=== PATIENT | female | born 1975 | race Caucasian/White ===

== ENCOUNTER 2020-06-04 09:46 | Outpatient (CLI) | payer OTHER, SELFPAY ==
--- NOTE | 2020-06-04 10:13 | FL_ITS ---
WS: [id number] ESOPHAGRAM TECHNIQUE: Double contrast examination was performed with thin and thick barium. Upright and ERVIN imag es were obtained. CLINICAL INFORMATION: DYSPHAGIA COMPARISON: None. FINDINGS: Swallowing: No evidence of aspiration or penetration. Esophagus: Mild esophageal dysmotility with slightly delayed emptying. Eccentric vascular indentation on the upper esophagus. Slightly delayed transit of barium tablet in this location. No evidence of h igh-grade stricture or obstructing mass. Gastroesophageal reflux: Mild reflux in the upright and supine position. No significant hiatal hernia . Fluoroscopy time: 3.3 minutes. FL/FL barium swallow [id number] IMPRESSION: 1. No evidence of high-grade stricture or obstructing mass. 2. Mild esophageal dysmotility with slightly delayed emptying. 3. Mild reflux in the upright and supine position. No significant hiatal herni a. 4. Smooth eccentric vascular indentation on the upper esophagus. Slightly afshin yed transit of barium tablet in this location. Recommend further evaluation wit h contrast-enhanced chest CT to evaluate for aortic arch anomalies. Aortic arch appears left-sided. Indentation may be from an aberrant right subclavian arter y.
== END 2020-06-04 09:47 | disposition home or self-care (01) ==
PROVIDERS: PCP Family Medicine; Visit Provider Specialist
DX: R13.10 Dysphagia, unspecified (principal)
CPT/HCPCS: 74220

== ENCOUNTER 2020-07-04 08:24 | Outpatient (CLI) | payer OTHER, SELFPAY ==
--- NOTE | 2020-07-04 08:30 | CT_ITS ---
WS: [id number] CT CHEST TECHNIQUE: Contrast enhanced CT of the chest with coronal and sagittal reformatted images. CLINICAL INFORMATION: DYSPHAGIA COMPARISON: None. DLP: 563.[address] scans at [facility] use at least one of these dose optimization techniques: automat ed exposure control; mA and/or kV adjustment per patient size (includes targeted exams where dose is matched to clinical indication); or iterative reconstruction. FINDINGS:Aberrant right subclavian artery as suspected on the barium swallow accounting for the esoph ageal indentation. This courses posterior to the thoracic esophagus. Otherwise normal aortic arch. Lungs are well aerated. No acute pulmonary infiltrates. No focal consolidation or pleural fluid. Thyr oid gland is normal. No mediastinal or hilar lymphadenopathy. No axillary lymphadenopathy. Normal caliber thoracic aorta. Adrenal glands are normal. CT/CT chest w con* [id number] IMPRESSION: 1. Retroesophageal subclavian artery with indentation on the esophagus as desc ribed on the barium swallow. 2. Remainder of the aortic arch is unremarkable. 3. Lungs are well aerated. No acute pulmonary infiltrates. 4. No mediastinal or hilar lymphadenopathy.
--- NOTE | 2020-07-04 08:30 | CT_ITS ---
WS: [id number] CT NECK TECHNIQUE: Contrast-enhanced CT of the neck with coronal and sagittal reformatted images. CLINICAL INFORMATION: DYSPHAGIA COMPARISON: None. DLP: 2429.[address] scans at [facility] use at least one of these dose optimization techniques: automat ed exposure control; mA and/or kV adjustment per patient size (includes targeted exams where dose is matched to clinical indication); or iterative reconstruction. FINDINGS: Parotid glands are normal. Normal submandibular glands. No cervical lymphadenopathy. No evidence of s upraglottic or glottic mass. Normal parapharyngeal fat. Normal posterior nasopharynx. Tongue base guero ears normal. Normal thyroid gland. Lung apices are well aerated. Aberrant right subclavian artery will be discussed on the chest CT. Small retention cysts in the maxi llary sinuses. Mastoid air cells are well aerated. CT/CT neck w con* [id number] IMPRESSION: 1. Salivary glands are normal. 2. No cervical lymphadenopathy 3. No evidence of supraglottic or glottic mass. Normal subglottic airway. 4. Aberrant right subclavian artery.
[2020-07-04] MEDS: iohexol 300 mg/mL 100 mL Btl IV ×2 (09:07→09:08)
== END 2020-07-04 08:25 | disposition home or self-care (01) ==
LOC: RADWPI 08:27
PROVIDERS: PCP Family Medicine; Visit Provider Specialist
DX: R13.10 Dysphagia, unspecified (principal); Q27.8 Other specified congenital malformations of peripheral vascular system
CPT/HCPCS: 70491; 71260; Q9967

== ENCOUNTER 2021-06-06 10:27 | Outpatient (CLI) | payer OTHER, SELFPAY ==
--- NOTE | 2021-06-06 10:29 | MM_ITS ---
WS: [id number] Exam: [id number] Date/Time of Exam: 06/06/2021 10:35 AM Reason For Exam: SCREENING VIEWS: MLO and CC views both breasts. Comparison made with prior exam of 12/19/2013 and 04/14/2018. Findings: There was no sign of mass, architectural distortion or suspicious calcification in either breast. Sc attered fibroglandular densities MM/[place] [id number] Impression: BI-RADS: 2-Benign FOLLOW-UP: 1 Year Follow-up This mammogram was also analyzed by the Computer Aided Detection System R2 Imag e Assistant Store Manager.
== END 2021-06-06 10:28 | disposition home or self-care (01) ==
PROVIDERS: PCP Family Medicine; Visit Provider Family Medicine
DX: Z12.31 Encounter for screening mammogram for malignant neoplasm of breast (principal)
CPT/HCPCS: 77067

== ENCOUNTER 2022-06-10 22:09 | Observation (INO) | payer OTHER, SELFPAY ==
[2022-06-10 22:17] VITALS: BMI 32.8
[2022-06-10 22:20] VITALS: BP 137/88; PULSE 81; RESP 17; TEMP 36.7; O2SAT 97
[2022-06-10 23:12] LABS: Add Urine Microscopic? NO; Charge for UA Resulting for Rev
--- NOTE | 2022-06-10 23:16 | CTR_ITS ---
PROCEDURE INFORMATION: Exam: CT Abdomen And Pelvis With Contrast Exam date and time: 06/10/2022 11:50 PM Age: 46 years old Clinical indication: Abdominal pain; Localized; Prior surgery; Surgery type: Csection; Patient HX: C/O lower abd pain with nausea. TECHNIQUE: Imaging protocol: Computed tomography of the abdomen and pelvis with contrast. Radiation optimization: All CT scans at this facility use at least one of these dose optimization techniques: automated exposure control; mA and/or kV adjustment per patient size (includes targeted exams where dose is matched to clinical indication); or iterative reconstruction. Contrast material: OMNI 350; Contrast volume: 100 ml; Contrast route: INTRAVENOUS (IV); COMPARISON: CT chest w con* [id number] 07/04/2020 9:01 AM RADIATION DOSE METRICS: Total DLP (mGy-cm): 872.43 FINDINGS: Lungs: There is a noncalcified pulmonary nodule in the left lower lobe visible on series 4, image 6 measuring 6 mm. Lung bases are clear. Liver: The liver is normal. Gallbladder and bile ducts: The gallbladder is normal. There is no biliary dilation. Pancreas: The pancreas is unremarkable. Spleen: The spleen is unremarkable. Adrenal glands: The adrenal glands are unremarkable. Kidneys and ureters: The kidneys are unremarkable. No hydronephrosis or stones. No ureteral dilation. Stomach and bowel: The stomach is unremarkable. The small bowel is nondilated. The colon is unremarkable. Appendix: The appendix is enlarged measuring up to 9 mm diameter. There is periappendiceal edema. No appendicoliths. Intraperitoneal space: There is no free air or significant intraperitoneal free fluid. There is no intraperitoneal free air. Vasculature: The aorta is unremarkable. There is no aneurysm. The portal, splenic and superior mesenteric veins are patent. Lymph nodes: There is no lymphadenopathy in the retroperitoneum, mesentery, pelvis or inguinal regions. Urinary bladder: Unremarkable as visualized. Reproductive: The uterus is unremarkable. There is no adnexal mass or large cyst. Bones/joints: Bones are unremarkable. Soft tissues: The abdominal wall is intact. The abdominal wall is intact. CT/CT abdomen pelvis w con* [id number] IMPRESSION: 1. Acute appendicitis. No sign of perforation. 2. 6 mm left lower lobe pulmonary nodule.For patients at low risk (minimal or absent history of smoking and of other known risk factors), recommend CT Chest at 6-12 months, then consider CT Chest at 18-24 months. For patients at high risk (history of smoking or of other known risk factors), recommend CT Chest at 6-12 months, then CT Chest at 18-24 months. (Reference: Darell) REFERENCES: Darell Hoover et al. Guidelines for Management of Incidental Pulmonary Nodules Detected on CT Images: From the Fleischner Society 2017. Radiology. 2017;284(1):228-243.
[2022-06-10 23:20] LABS: Bilirubin Urine Neg (Negative); Blood Urine Neg (Negative); Glucose Urine UA Norm (Normal); Ketones Urine Negative (Negative); Leukocyte Esterase Urine Negative (Negative); Nitrate Urine Negative (Negative); Protein Urine Neg (Negative); Urine Appearance Clear (CLEAR); Urine Color Yellow (Yellow); Urobilinogen Urine Norm (Negative); pH Urine 5 (5-7)
[2022-06-10 23:30] LABS: HCG, Serum Qual Negative (Negative)
[2022-06-10 23:34] LABS: Basophils # 0.1 10^3/uL (0.0-0.1); Basophils % 0.5 %; Eosinophils # 0.1 10^3/uL (0.0-0.8); Eosinophils % 1.1 %; Hematocrit 42.3 % (37.0-47.0); Hemoglobin 14.4 g/dL (11.5-15.3); Lymphocytes # 5.8 10^3/uL (0.8-4.8); Lymphocytes % 43.9 %; Mean Corpuscular Hemoglobin 30.3 pg (28.0-34.0); Mean Corpuscular Volume 89.1 fl (81-99); Mean Platelet Volume 10.4 fL (7.4-10.4); Monocytes # 0.6 10^3/uL (0.2-0.9); Monocytes % 4.7 %; Neutrophils # 6.55 10^3/uL (1.8-7.7); Neutrophils % 49.3 %; Nucleated Red Blood Cells % 0 %; Platelet Count 246 10^3/cmm (130-400); Red Blood Count 4.75 10^6/uL (4.1-5.3); Red Cell Distribution Width 12.1 % (12.1-15.1); White Blood Count 13.3 10^3/uL (4.0-10.0)
[2022-06-10 23:39] LABS: Alanine Aminotransferase 24 U/L (0-33); Albumin Level 4.3 g/dL (3.5-5.2); Alkaline Phosphatase 96 U/L (35-105); Anion Gap 17.2 (5-19); Aspartate Amino Transferase 24 U/L (0-32); Blood Urea Nitrogen 18 mg/dL (6-20); Calcium 9.3 mg/dL (8.5-10.5); Carbon Dioxide 23 mmol/L (22-29); Chloride 99 mmol/L (98-107); Globulin 3.5 g/dL (1.3-4.6); Glomerular Filtration Rate 89.3 mL/min (90-130); Glucose 150 mg/dL (65-115); Lipase 35 U/L (13-60); Osmolality Calculated 287 mOsm/kg (285-295); Potassium 3.2 mmol/L (3.5-5.1); Sodium 136 mmol/L (136-145); Total Bilirubin 0.3 mg/dL (0.15-1.2); Total Protein 7.8 g/dL (6.6-8.7)
--- NOTE | 2022-06-10 23:39 | W.ED.ABDPA2 ---
HPI - Abdominal Pain General: Chief Complaint: Abdominal Pain Stated Complaint: ABDOMEN PAIN Time Seen by Provider: 06/10/22 22:11 Source: patient Mode of arrival: ambulatory Limitations: no limitations History of Present Illness: 46-year-old female states that she had a sudden onset of very sharp lower abdominal pain about 30 minutes to arrival states its her whole lower abdomen but more on the left side. States the pain is a 9 out of 10 she been having nausea and vomiting she denies any worsening proving factors denies any fevers. Associated Symptoms: Reports nausea and vomiting; Denies chills, dysuria and fever(s) Review of Systems Const: Denies: fever(s), chills, body aches or change in appetite Eyes: Denies: blurry vision or eye discomfort ENMT: Denies: throat pain or dental pain Card: Denies: chest pain Resp: Denies: dyspnea GI: Reports: abdominal pain, nausea and vomiting : Denies: dysuria Musc: Denies: neck pain or back pain Skin/Breast: Denies: rash Neuro: Denies: headache(s) Psych: Denies: depression Geovani/Lymph: Denies: easy bruising All/Imm: Denies: urticaria PFSH ED PFSH: Medical History (Updated 06/11/22 @ 00:38 by Sandy Doss MD) No pertinent past medical history Social History (Updated 06/10/22 @ 23:40 by Sandy Doss MD) Substance/Drug Use: never Physical Exam Const: COMMON NORMALS: no acute distress, patient oriented x3 and healthy appearing HENMT: COMMON NORMALS: normocephalic and atraumatic HEAD & SCALP: normocephalic and atraumatic Eye: COMMON NORMALS: Equal, round and reactive pupils present and EOMs intact bilaterally PUPIL: Yes Equal, round and reactive pupils present Neck/C-Spine: COMMON NORMALS: full ROM and supple Chest: COMMONS NORMALS: normal inspection of the chest and normal palpation of entire chest wall Resp: COMMON NORMALS: normal respiratory effort, No retractions, No use of accessory muscles and clear to auscultation bilaterally AUSCULTATION: clear to auscultation bilaterally Cardio: COMMON NORMALS: regular rate, regular rhythm and No murmurs present (Cardio) RATE: regular rate RHYTHM: regular rhythm GI: COMMON NORMALS: Normal to inspection, nondistended, normoactive bowel sounds present, Soft to palpation and no masses PALPATION: Yes Soft to palpation OTHER: diffuse tenderness Extremity: COMMON NORMALS: normal to inspection and full ROM Neuro: COMMON NORMALS: patient oriented x3, moves all extremities and no focal motor deficits Psych: COMMON NORMALS: mental status grossly normal, Normal thought process present and cooperative THOUGHT PROCESS: Normal thought process present Skin: COMMON NORMALS: no rashes or lesions noted and no wounds GENERAL SKIN EXAM: no rashes or lesions noted Course Vital Signs: Vital signs: Vital Signs Temperature 98.1 F 06/10/22 22:20 Pulse Rate 81 06/10/22 22:20 Respiratory Rate 18 06/10/22 23:42 Blood Pressure 137/88 06/10/22 22:20 Pulse Oximetry 97 06/10/22 22:20 Oxygen Delivery Me thod Nasal Cannula 06/10/22 22:20 MDM - Abdominal Pain Medical Decision Making Patient presents with abdominal pain CT scan shows appendicitis I did speak to the surgeon dr. johnson will admit on IV antibiotics at this time. Lab Data 06/10/22 23:07 06/10/22 23:07 Labs/Radiology: Radiology Impressions Abdomen/Pelvis CT 06/10/22 23:16 IMPRESSION: 1. Acute appendicitis. No sign of perforation. 2. 6 mm left lower lobe pulmonary nodule.For patients at low risk (minimal or absent history of smoking and of other known risk factors), recommend CT Chest at 6-12 months, then consider CT Chest at 18-24 months. For patients at high risk (history of smoking or of other known risk factors), recommend CT Chest at 6-12 months, then CT Chest at 18-24 months. (Reference: Darell) REFERENCES: Darell Hoover et al. Guidelines for Management of Incidental Pulmonary Nodules Detected on CT Images: From the Fleischner Society 2017. Radiology. 2017;284(1):228-243. ADDENDUM: 06/11/22 0024 THIS REPORT CONTAINS FINDINGS THAT MAY BE CRITICAL TO PATIENT CARE. The findings were verbally communicated via telephone conference with SANDY DOSS at 12:23 AM PHARMACIST AIDE on 06/11/2022. The findings were acknowledged and understood. Laboratory Results WBC 13.3 10^3/uL (4.0-10.0) H 06/10/22 23:07 RBC 4.75 10^6/uL (4.1-5.3) 06/10/22 23:07 Hgb 14.4 g/dL (11.5-15.3) 06/10/22 23:07 Hct 42.3 % (37.0-47.0) 06/10/22 23:07 MCV 89.1 fl (81-99) 06/10/22 23:07 MCH 30.3 pg (28.0-34.0) 06/10/22 23:07 MCHC 34.0 g/dL (30.0-36.0) 06/10/22 23:07 RDW 12.1 % (12.1-15.1) 06/10/22 23:07 Plt Count 246 10^3/cmm (130-400) 06/10/22 23:07 MPV 10.4 fL (7.4-10.4) 06/10/22 23:07 Neut % (Auto) 49.3 % 06/10/22 23:07 Lymph % (Auto) 43.9 % 06/10/22 23:07 [place] % (Auto) 4.7 % 06/10/22 23:07 Eos % (Auto) 1.1 % 06/10/22 23:07 Baso % (Auto) 0.5 % 06/10/22 23:07 Neut # (Auto) 6.55 10^3/uL (1.8-7.7) 06/10/22 23:07 Lymph # (Auto) 5.8 10^3/uL (0.8-4.8) H 06/10/22 23:07 [place] # (Auto) 0.6 10^3/uL (0.2-0.9) 06/10/22 23:07 Eos # (Auto) 0.1 10^3/uL (0.0-0.8) 06/10/22 23:07 Baso # (Auto) 0.1 10^3/uL (0.0-0.1) 06/10/22 23:07 Nucleated RBC % (auto) 0 % 06/10/22 23:07 Nucleated RBCs # 0.0 /100WBC 06/10/22 23:07 Sodium 136 mmol/L (136-145) 06/10/22 23:07 Potassium 3.2 mmol/L (3.5-5.1) L 06/10/22 23:07 Chloride 99 mmol/L (98-107) 06/10/22 23:07 Carbon Dioxide 23 mmol/L (22-29) 06/10/22 23:07 Anion Gap 17.2 (5-19) 06/10/22 23:07 BUN 18 mg/dL (6-20) 06/10/22 23:07 Creatinine 0.7 mg/dL (0.5-0.9) 06/10/22 23:07 GFR Calculation 89.3 mL/min (90-130) L 06/10/22 23:07 Glucose 150 mg/dL (65-115) H 06/10/22 23:07 Calculated Osmolality 287 mOsm/kg (285-295) 06/10/22 23:07 Calcium 9.3 mg/dL (8.5-10.5) 06/10/22 23:07 Total Bilirubin 0.3 mg/dL (0.15-1.2) 06/10/22 23:07 AST 24 U/L (0-32) 06/10/22 23:07 ALT 24 U/L (0-33) 06/10/22 23:07 Alkaline Phosphatase 96 U/L (35-105) 06/10/22 23:07 Total Protein 7.8 g/dL (6.6-8.7) 06/10/22 23:07 Albumin 4.3 g/dL (3.5-5.2) 06/10/22 23:07 Globulin 3.5 g/dL (1.3-4.6) 06/10/22 23:07 Lipase 35 U/L (13-60) 06/10/22 23:07 HCG, Qual Negative (Negative) 06/10/22 23:07 Urine Color Yellow (Yellow) 06/10/22 23:07 Urine Appearance Clear (CLEAR) 06/10/22 23:07 Urine pH 5 (5-7) 06/10/22 23:07 Ur Specific [place] 1.030 (1.005-1.030) 06/10/22 23:07 Urine Protein Neg (Negative) 06/10/22 23:07 Urine Glucose (UA) Norm (Normal) 06/10/22 23:07 Urine Ketones Negative (Negative) 06/10/22 23:07 Urine Blood Neg (Negative) 06/10/22 23:07 Urine Nitrate Negative (Negative) 06/10/22 23:07 Urine Bilirubin Neg (Negative) 06/10/22 23:07 Urine Urobilinogen Norm mg/dL (Negative) 06/10/22 23:07 Ur Leukocyte Esterase Negative (Negative) 06/10/22 23:07 Discharge Plan Discharge Patient Disposition: Admitted As Inpatient Clinical Impression: Acute appendicitis Referrals: Germán Luther MD [Primary Care Provider] - Patient Instructions: Appendicitis (GEN) Coding Level of Care Code ED Cash Management Associate for Chg Fwd Exam Comprehensive
[2022-06-10] MEDS: sodium chloride 0.9% 1,000 ML 999 ML IV (23:41)
[2022-06-10 23:42] VITALS: RESP 18
[2022-06-10] MEDS: HYDROmorphone 1 mg/mL INJ 1 mL IVP (23:42)
[2022-06-10] MEDS: ondansetron 2 mg/ML SDV 2 mL 4 MG IVP (23:43)
[2022-06-10] MEDS: iohexol 350 mg/mL 500 mL Btl (per mL) IV (23:54)
[2022-06-11] VITALS (25 sets, daily range): BP systolic 95–126; BP diastolic 58–81; PULSE 77–109; RESP 13–20; TEMP 36.4–37.6; O2SAT 91–99
[2022-06-11] MEDS: HYDROmorphone 1 mg/mL INJ 1 mL IVP (00:40)
[2022-06-11] MEDS: piperacillin-tazobactam 3.375 GM in sodium chloride 0.9% (plus) 50 ML IV ×3 (00:41→17:22)
[2022-06-11] MEDS: sodium chloride 0.9% 1,000 ML 100 ML IV ×2 (01:52→16:21)
[2022-06-11] MEDS: morphine 4 mg/mL SDV 1 mL IVP ×2 (02:50→07:04)
[2022-06-11] MEDS: ondansetron 2 mg/ML SDV 2 mL 4 MG IVP (02:50)
--- NOTE | 2022-06-11 07:03 | P.HP_ITS ---
Providers/Chief Complaint Admitting Physician: Doroteo Verma MD Primary Care Provider: Germán Luther MD Chief Complaint: ABDOMEN PAIN History of Present Illness Janis Napier is a 46 year old female who presented to the hospital with acute onset abdominal pain. She reported that it started as a sharp diffuse abdominal pain and then localized to the suprapubic region. Palpation and movement make the pain worse. Narcotics make the pain better. Pain does not radiate. She reports nausea and chills. Denies any emesis, hematochezia and/or melena. Work-up in the ER shows acute appendicitis. Review of Systems General: Reports: 10 or more systems reviewed and unremarkable except in HPI and below Medications/Allergies Allergies Allergy/AdvReac Type Severity Reaction Status Date / Time Sulfa (Sulfonamide Allergy ALGY-Rash Verified 06/10/22 23:01 Antibiotics) PFSH Acute PFSH: Medical History No pertinent past medical history Social History Substance/Drug Use: never Vitals/I&O/Wt Last Vital Signs Temp 98.1 F 06/10/22 22:20 Pulse 90 06/11/22 05:30 Resp 17 06/11/22 03:00 BP 113/73 06/11/22 06:00 Pulse Ox 95 06/11/22 06:00 O2 Del Method 06/11/22 03:00 06/10/22 06/11/22 06/11/22 22:59 06:59 14:59 Intake Total 1050 / 1050 Balance 1050 / 1050 Weight last 48 hrs Weight 210 lb Physical Exam Narrative: General : Patient is well developed , no acute distress, oriented x3 Head : Normal cephalic, a-traumatic. Ears : Pinnae and external canal are normal. Hearing is normal. Eyes : PERRLA, Sclera and injection are normal. No conjunctival discharge. Nose : Mucous membranes are without erythema. Throat : buccal mucosa is normal, gums are without significant recession or hypertrophy. Lungs : Equal chest rise bilaterally, no use of accessory muscles, trachea is midline. Cor : Rate and rhythm are normal. Abdomen : Soft, ND, tender to palpation lower abdomen, positive Rovsing's, no g/r/m Extremities : No edema, no cyanosis or clubbing, dorsalis pedis pulses are present bilaterally, non-tender to palpation of calves. Upper extremities are normal bilaterally. Back : non-tender to palpation, no CVA tenderness. Neuro : CN II - XII intact, Upper and lower extremities have equal and full strength Data 06/10/22 23:07 06/10/22 23:07 A&P Assessment and plan (1) Acute appendicitis: Plan Laparoscopic Appendectomy The risks and benefits of the procedure, including but not limited to, bleeding, infection, scar, numbness, pain, damage to surrounding structures, conversion to an open procedure, were explained to the patient who is understanding of the risks and wishes to proceed. Attestations Medical Necessity Statement*: Patient requires at least 1 night in the hospital for IV antibiotics after appendectomy Coding Level of Care Code Acute Lead Business Systems Analyst for Vanita Mcguire Diagnoses Acute appendicitis K35.80
--- NOTE | 2022-06-11 07:07 | PC.NURSE ---
Surgery crew picked up patient at 0705
--- NOTE | 2022-06-11 07:22 | P.ANESASSM_ITS ---
Pre-Anesthetic Assessment Height/Weight: Height 1.7 m Weight 95.254 kg Temp Pulse Resp BP Pulse Ox O2 Del Method 98.1 F 90 18 113/73 95 06/10/22 22:20 06/11/22 05:30 06/11/22 07:04 06/11/22 06:00 06/11/22 06:00 06/11/22 03:00 Operation Date: 06/11/22 07:00 Proposed Procedures p Laparoscopic Appendectomy(Not Applicable) - Nicholas Van DO Familial anesthetic complications: none Was Beta Anum taken within 24 hours: N/A Was Clonidine taken within 24 hours: N/A Last intake: > 8hrs Social No alcohol and No tobacco Exam alert, oriented x 3, clear to auscultation bilaterally and regular rate & rhythm Airway Mallampati: Class II Dentition: full and other (missing) Anesthetic Plan ASA status: 1 Anesthesia: General Risk of > 500 ml blood loss (7ml/kg in children): No Medications/Allergies Allergies Allergy/AdvReac Type Severity Reaction Status Date / Time Sulfa (Sulfonamide Allergy ALGY-Rash Verified 06/10/22 23:01 Antibiotics) Current Medications Generic Name Dose Route Start Last Admin Trade Name Freq PRN Reason Stop Dose Admin Sodium Chloride 1,000 mls @ 100 mls/hr 06/11/22 01:40 06/11/22 01:52 Sodium Chloride 0.9% IV 100 mls/hr .Q10H KRISHNA Administration Morphine Sulfate 4 mg 06/11/22 01:40 06/11/22 07:04 Morphine 4 Mg/Ml Sdv 1 Ml IVP 4 mg Q4H PRN Administration SEVERE PAIN Ondansetron HCl 4 mg 06/11/22 01:40 06/11/22 02:50 Ondansetron 2 Mg/Ml Sdv 2 Ml IVP 4 mg Q6H PRN Administration NAUSEA AND VOMITING PFSH Anesthesia Medical History (Updated 06/11/22 @ 07:17 by Bianka Bolton) No pertinent past medical history Social History Substance/Drug Use: never Data Anesthesia 06/10/22 23:07 06/10/22 23:07 Short CBC 06/10/22 Range/Units 23:07 WBC 13.3 H (4.0-10.0) 10^3/uL Hgb 14.4 (11.5-15.3) g/dL Hct 42.3 (37.0-47.0) % MCV 89.1 (81-99) fl Plt Count 246 (130-400) 10^3/cmm Neut % (Auto) 49.3 % Neut # (Auto) 6.55 (1.8-7.7) 10^3/uL BMP 06/10/22 23:07 Sodium 136 Potassium 3.2 L Chloride 99 Carbon Dioxide 23 BUN 18 Creatinine 0.7 Glucose 150 H Calcium 9.3 Liver Function 06/10/22 Range/Units 23:07 Total Bilirubin 0.3 (0.15-1.2) mg/dL AST 24 (0-32) U/L ALT 24 (0-33) U/L Alkaline Phosphatase 96 (35-105) U/L Albumin 4.3 (3.5-5.2) g/dL Urine 06/10/22 Range/Units 23:07 Urine Color Yellow (Yellow) Urine Appearance Clear (CLEAR) Urine pH 5 (5-7) Ur Specific [place] 1.030 (1.005-1.030) Urine Protein Neg (Negative) Urine Glucose (UA) Norm (Normal) Urine Ketones Negative (Negative) Urine Nitrate Negative (Negative) Urine Bilirubin Neg (Negative) Ur Leukocyte Esterase Negative (Negative) Cardiac Studies: No Data to Display
--- NOTE | 2022-06-11 08:35 | P.OP_ITS ---
Operative Report Date of procedure: June 11, 2022 Pre-op diagnosis: Acute appendicitis Post-op diagnosis: same Procedure done: Laparoscopic appendectomy Specimens removed/disposition: Appendix Surgeon: Dr. Nicholas Van DO Anesthesia: General Estimated blood loss (mL): 5 Complications: None apparent Brief History: This very pleasant 46-year-old female who was diagnosed with acute appendicitis in the ER. Laparoscopic appendectomy was indicated. The risks and benefits were explained and documented. Procedure: Patient was wheeled into the operative room and placed on the OR table in a supine position. Abdomen was inspected prepped and draped in usual sterile fashion. Time-out was performed and all present were in agreement. A 15 blade scalp was used to make a stab incision in the left upper quadrant and intra- abdominal insufflation was achieved using a Veress needle. After localizing the tissue incisions were made and a 12 millimeter trocar was placed into the umbilicus as well as a 5mm in the right lower quadrant and a 5 mm in the left lower quadrant . The appendix was identified and was mildly inflamed. I used the Voyant to ligate the mesoappendix at the base. I then used 2 PDS endo-loops to snare the base of the appendix. I then used the Voyant to ligate the appendix distally. The appendix was removed from the abdomen using an Endo- Catch bag through the umbilical incision. I examined the abdomen and no further pathology was identified. Hemostasis was noted. I then closed the umbilical site with a Aquiles-Ld and 0 Vicryl suture in a figure of 8 fashion. All ports removed. Skin was washed and dried. Incisions were closed with 4 O Vicryl in a subcuticular interrupted fashion. Skin glue was applied. Patient tolerated the procedure well.
--- NOTE | 2022-06-11 10:15 | P.PCN_ITS ---
PACU note Narrative: VSS, Good respiratory effort, report to LINEN SUPERVISOR Exam: awake
--- NOTE | 2022-06-11 10:15 | PM.PACU ---
PACU note Narrative: VSS, Good respiratory effort, report to TOOL CRIB ATTENDANT Exam: awake
--- NOTE | 2022-06-11 12:34 | SUR.EXTENDED ---
patient was transported to room 277 by [facility]. patient awake and alert, present on transport. patient moved self to floor bed. iv antibiotic still running per order. patient on room air. report was called to nurse lubin.
[2022-06-11] MEDS: HYDROcodone-acetaminophen 7.5-325 mg Tablet 1 TAB PO ×3 (13:11→22:06)
[2022-06-11] MEDS: heparin 5,000 unit/mL INJ 1 mL 5000 UNIT SUBCUT ×2 (14:07→21:06)
--- NOTE | 2022-06-11 14:15 | ANE.PACU2 ---
Inpatient post-anesthesia follow up: Airway intact: Yes Vital signs: Temperature 99.6 F Pulse Rate 84 Respiratory Rate 17 Blood Pressure 106/70 Pulse Oximetry 93 Oxygen Delivery Me thod Room Air Oxygen Flow Rate 2 Fraction of Inspir ed Oxygen Hydration adequate: Yes Nausea and vomiting: No Pain level: 1 Mental status: Baseline
[2022-06-11 22:00] LABS: Glucose Point of Care 143 mg/dL (70-110)
[2022-06-12] VITALS: BP 104/67; PULSE 85; RESP 18; TEMP 36.6; O2SAT 93
[2022-06-12] MEDS: piperacillin-tazobactam 3.375 GM in sodium chloride 0.9% (plus) 50 ML IV ×2 (02:25→10:22)
[2022-06-12] MEDS: sodium chloride 0.9% 1,000 ML 100 ML IV ×2 (02:26→12:48)
[2022-06-12 03:53] VITALS: BP 100/60; PULSE 69; RESP 17; TEMP 36.8; O2SAT 91
[2022-06-12 05:35] LABS: Basophils % 0.2 %; Hematocrit 36.2 % (37.0-47.0); Hemoglobin 11.9 g/dL (11.5-15.3); Lymphocytes # 2.7 10^3/uL (0.8-4.8); Lymphocytes % 27.8 %; Mean Corpuscular HGB Conc 32.9 g/dL (30.0-36.0); Mean Corpuscular Hemoglobin 30.4 pg (28.0-34.0); Mean Corpuscular Volume 92.3 fl (81-99); Mean Platelet Volume 10.8 fL (7.4-10.4); Monocytes # 0.6 10^3/uL (0.2-0.9); Monocytes % 6.7 %; Neutrophils # 6.22 10^3/uL (1.8-7.7); Nucleated Red Blood Cells % 0 %; Platelet Count 188 10^3/cmm (130-400); Red Blood Count 3.92 10^6/uL (4.1-5.3); Red Cell Distribution Width 12.8 % (12.1-15.1); White Blood Count 9.6 10^3/uL (4.0-10.0)
[2022-06-12 05:53] LABS: Anion Gap 11.6 (5-19); Blood Urea Nitrogen 9 mg/dL (6-20); Calcium 8.4 mg/dL (8.5-10.5); Carbon Dioxide 23 mmol/L (22-29); Chloride 107 mmol/L (98-107); Glomerular Filtration Rate 106.7 mL/min (90-130); Glucose 118 mg/dL (65-115); Osmolality Calculated 286 mOsm/kg (285-295); Potassium 3.6 mmol/L (3.5-5.1); Sodium 138 mmol/L (136-145)
[2022-06-12] MEDS: HYDROcodone-acetaminophen 7.5-325 mg Tablet 1 TAB PO ×2 (06:31→11:53)
[2022-06-12 08:17] VITALS: BP 113/66; PULSE 73; RESP 16; TEMP 36.7; O2SAT 91
[2022-06-12] MEDS: heparin 5,000 unit/mL INJ 1 mL 5000 UNIT SUBCUT (10:21)
--- NOTE | 2022-06-12 12:04 | PC.CHAP ---
Pastoral Care Encounter/Spiritual Assessment Type of Contact [] Declined fish farm laborer visit [] Patient/Family/Request visit [] Outpatient visit [] Follow-up visit [] Physician referral [] Code/Alert [x] Routine visit [] Staff referral [] Actively dying [] Patient sleeping [] Family support [] [] Out of room [] Palliative care [] [] Receiving care in room [] Pre-surgical visit [] Trauma [] Long length of stay [] ICU visit [] Other: Relational/Emotional Strength [x] Patient feels connected with others/family/visitors/staff [] Distress [] Loneliness/isolation [] Abandonment Spirituality of Patient [x Person of Renata [x] Attends Restoration of their Renata []xlieves in Prayer [] Reads Bible or Restoration materials [] There are Spiritual issues to be addressed Volunteer Recruitment Coordinator Interventions []x Prayer [x] Active listening [x Non-anxious presence [] Spiritual/emotional support [] Crisis/trauma care [] Spiritual counseling [] Bereavement support [] Provided bereavement packet [] Provided Bible/devotional materials [] Provided toy/stuffed animal, coloring book to patient or family member [] Provided Communion [] Anointing/[place] [] Salvation [x] Completed spiritual assessment [] Other: Impact on Illness or Injury [] Angry [] Fearful [] Anxious [] Often cries [] Exhaustion [] Unable to work [] Unable to attend church [] Unable to walk/stand [] Unable to read [] Unable to drive [] Unable to eat/drink [] Unable to sleep [] Unable to be with family [] Patient intubated [] Other: Summary Time spent with patient 15 min
[2022-06-12 12:28] VITALS: BP 103/69; PULSE 74; RESP 16; TEMP 36.7; O2SAT 93
--- NOTE | 2022-06-12 13:33 | PM.DCS ---
Discharge Providers Date of Admission: 06/11/22 11:50 Date of Discharge: June 12, 2022 Attending Provider at Admission: Nicholas Van DO Attending Provider at Discharge: Nicholas Van DO Primary Care Provider: Germán Ltuher MD Diagnoses at Discharge Discharge Diagnosis (1) Acute appendicitis: Status: Acute Reason for Visit Reason for Visit: ABDOMEN PAIN Hospital Course Hospital Course Is a very pleasant 46-year-old female who came in with appendicitis. She underwent laparoscopic appendectomy was discharged home in good condition the next day Physical Exam Narrative: General: No acute distress, awake alert and oriented x3 Abdomen: Soft, nondistended, appropriately tender to palpation Discharge Data Studies Completed and Pending Completed Studies During Hospitalization Category Date Time Status CT abdomen pelvis w con* [id number] Stat Cat Scan 06/10/22 23:16 Completed Pathology: Surgical [PTH] Routine Pth 06/11/22 08:37 Completed Pending at discharge Category Date Time Status BMP [Basic Metabolic Panel] AM LABS Lab 06/13/22 04:00 Ordered BMP [Basic Metabolic Panel] AM LABS Lab 06/14/22 04:00 Ordered CBC Auto Diff [Complete Blood Count w/Auto] AM LABS Lab 06/13/22 04:00 Ordered CBC Auto Diff [Complete Blood Count w/Auto] AM LABS Lab 06/14/22 04:00 Ordered Radiology Impressions Abdomen/Pelvis CT 06/10/22 23:16 IMPRESSION: 1. Acute appendicitis. No sign of perforation. 2. 6 mm left lower lobe pulmonary nodule.For patients at low risk (minimal or absent history of smoking and of other known risk factors), recommend CT Chest at 6-12 months, then consider CT Chest at 18-24 months. For patients at high risk (history of smoking or of other known risk factors), recommend CT Chest at 6-12 months, then CT Chest at 18-24 months. (Reference: Darell) REFERENCES: Wilholeyla H, et al. Guidelines for Management of Incidental Pulmonary Nodules Detected on CT Images: From the Fleischner Society 2017. Radiology. 2017;284(1):228-243. ADDENDUM: 06/11/22 0024 THIS REPORT CONTAINS FINDINGS THAT MAY BE CRITICAL TO PATIENT CARE. The findings were verbally communicated via telephone conference with SANDY DOSS at 12:23 AM [employer]ING [employer]ACHINE [employer] on 06/11/2022. The findings were acknowledged and understood. Laboratory Results WBC 9.6 10^3/uL (4.0-10.0) 06/12/22 04:46 RBC 3.92 10^6/uL (4.1-5.3) L 06/12/22 04:46 Hgb 11.9 g/dL (11.5-15.3) 06/12/22 04:46 Hct 36.2 % (37.0-47.0) L 06/12/22 04:46 MCV 92.3 fl (81-99) 06/12/22 04:46 MCH 30.4 pg (28.0-34.0) 06/12/22 04:46 MCHC 32.9 g/dL (30.0-36.0) 06/12/22 04:46 RDW 12.8 % (12.1-15.1) 06/12/22 04:46 Plt Count 188 10^3/cmm (130-400) 06/12/22 04:46 MPV 10.8 fL (7.4-10.4) H 06/12/22 04:46 Neut % (Auto) 65.0 % 06/12/22 04:46 Lymph % (Auto) 27.8 % 06/12/22 04:46 Brown % (Auto) 6.7 % 06/12/22 04:46 Eos % (Auto) 0.0 % 06/12/22 04:46 Baso % (Auto) 0.2 % 06/12/22 04:46 Neut # (Auto) 6.22 10^3/uL (1.8-7.7) 06/12/22 04:46 Lymph # (Auto) 2.7 10^3/uL (0.8-4.8) 06/12/22 04:46 Brown # (Auto) 0.6 10^3/uL (0.2-0.9) 06/12/22 04:46 Eos # (Auto) 0.0 10^3/uL (0.0-0.8) 06/12/22 04:46 Baso # (Auto) 0.0 10^3/uL (0.0-0.1) 06/12/22 04:46 Nucleated RBC % (auto) 0 % 06/12/22 04:46 Nucleated RBCs # 0.0 /100WBC 06/12/22 04:46 Sodium 138 mmol/L (136-145) 06/12/22 04:46 Potassium 3.6 mmol/L (3.5-5.1) 06/12/22 04:46 Chloride 107 mmol/L (98-107) 06/12/22 04:46 Carbon Dioxide 23 mmol/L (22-29) 06/12/22 04:46 Anion Gap 11.6 (5-19) 06/12/22 04:46 BUN 9 mg/dL (6-20) 06/12/22 04:46 Creatinine 0.6 mg/dL (0.5-0.9) 06/12/22 04:46 GFR Calculation 106.7 mL/min (90-130) 06/12/22 04:46 Glucose 118 mg/dL (65-115) H 06/12/22 04:46 POC Glucose 143 mg/dL (70-110) H 06/11/22 21:25 Calculated Osmolality 286 mOsm/kg (285-295) 06/12/22 04:46 Calcium 8.4 mg/dL (8.5-10.5) L 06/12/22 04:46 Total Bilirubin 0.3 mg/dL (0.15-1.2) 06/10/22 23:07 AST 24 U/L (0-32) 06/10/22 23:07 ALT 24 U/L (0-33) 06/10/22 23:07 Alkaline Phosphatase 96 U/L (35-105) 06/10/22 23:07 Total Protein 7.8 g/dL (6.6-8.7) 06/10/22 23:07 Albumin 4.3 g/dL (3.5-5.2) 06/10/22 23:07 Globulin 3.5 g/dL (1.3-4.6) 06/10/22 23:07 Lipase 35 U/L (13-60) 06/10/22 23:07 HCG, Qual Negative (Negative) 06/10/22 23:07 Urine Color Yellow (Yellow) 06/10/22 23:07 Urine Appearance Clear (CLEAR) 06/10/22 23:07 Urine pH 5 (5-7) 06/10/22 23:07 Ur Specific [place] 1.030 (1.005-1.030) 06/10/22 23:07 Urine Protein Neg (Negative) 06/10/22 23:07 Urine Glucose (UA) Norm (Normal) 06/10/22 23:07 Urine Ketones Negative (Negative) 06/10/22 23:07 Urine Blood Neg (Negative) 06/10/22 23:07 Urine Nitrate Negative (Negative) 06/10/22 23:07 Urine Bilirubin Neg (Negative) 06/10/22 23:07 Urine Urobilinogen Norm mg/dL (Negative) 06/10/22 23:07 Ur Leukocyte Esterase Negative (Negative) 06/10/22 23:07 Vitals Last Vital Signs Temp 98.1 F 06/12/22 12:28 Pulse 74 06/12/22 12:28 Resp 16 06/12/22 12:28 BP 103/69 06/12/22 12:28 Pulse Ox 93 06/12/22 12:28 O2 Del Method 06/12/22 12:28 O2 Flow Rate 2 06/11/22 10:28 Discharge Plan Discharge Patient Disposition: Home Condition: Stable Prescriptions: New DOK 100 mg capsule 100 mg PO BID Qty: 20 0RF amoxicillin-pot clavulanate 875-125 mg tablet 1 tab PO BID Qty: 20 0RF hydrocodone-acetaminophen 7.5-325 mg tablet 1 tab PO Q6H PRN (Reason: pain) Qty: 20 0RF Discharge Orders: Discharge Order (Routine); Ordered 06/12/22 Ordered By: Nicholas Van Referrals: Nicholas Van DO [Physician] - 06/24/22 2:15 pm Germán Luther MD [Primary Care Provider] - 06/16/22 11:00 am Discharge Diet: Advance as tolerated Discharge Activity: Resume usual activity Patient Instructions: Hydrocodone/Acetaminophen (By mouth), Amoxicillin/Clavulanate Potassium (By mouth), Laxative, Stool Softeners (By mouth), Appendicitis (GEN), Post Anesthesia Care Activity Restrictions/Additional Instructions: Do not soak incisions underwater for 2 weeks. Shower daily Discharge Attestations Time Spent in Discharge Care*: less than 30 min Quality Metrics Clinical Quality Measures [ No reported AMI, CVA or VTE this stay] Coding Level of Care Code Acute Chg FW DC note Diagnoses Acute appendicitis K35.80
== END 2022-06-12 14:00 | disposition home or self-care (01) ==
LOC: ER 06-11 00:40 → ER IP 06-11 03:19 → OPS 06-11 07:13 → MEDSURG 06-11 11:50
PROVIDERS: Admitting Provider Surgery; Emergency Provider Emergency Medicine; PCP Family Medicine; Visit Provider Surgery
PROC: 0DTJ4ZZ Resection of Appendix, Percutaneous Endoscopic Approach (ICD-10-PCS; CPT 44970; principal; 2022-06-11 07:00)
DX: K35.33 Acute appendicitis with perforation, localized peritonitis, and gangrene, with abscess (principal)
CPT/HCPCS: 44970; 36415; 36416; 74177; 80048; 80053; 81003; 82962; 83690; 84703; 85025; 88304; 96372; 96374; 96375; 96376; 99285; G0378; J1100; J1170; J1644; J2270; J2405; J2543; J2704; J2710; J3010; J3490; J7030; Q9967

== ENCOUNTER 2022-09-11 08:18 | Outpatient (CLI) | payer OTHER, SELFPAY ==
--- NOTE | 2022-09-11 08:34 | MM_ITS ---
WS: [email or web address] BILATERAL SCREENING DIGITAL TOMOSYNTHESIS MAMMOGRAM WITH CAD HISTORY: SCREEN COMPARISON: 06/06/2021, 04/14/2018 Bilateral CC and MLO views with tomosynthesis and synthetic mammography submitted. Computer aided det ection analyzed. Breast composition: There are scattered areas of fibroglandular density. No suspicious masses, microc alcifications or architectural distortion. MM/[place] [id number] IMPRESSION: BI-RADS: 1-Negative FOLLOW UP: 1 Year Follow-up
== END 2022-09-11 08:19 | disposition home or self-care (01) ==
PROVIDERS: PCP Family Medicine; Visit Provider Family Medicine
DX: Z12.31 Encounter for screening mammogram for malignant neoplasm of breast (principal)
CPT/HCPCS: 77063; 77067

== ENCOUNTER 2022-10-22 14:35 | Outpatient (CLI) | payer OTHER, SELFPAY ==
--- NOTE | 2022-10-22 14:30 | XR_ITS ---
WS: [email or web address] DEXA (DUAL ENERGY X-RAY ABSORPTIOMETRY) Bone mineral density was performed using a [employer] machine. HISTORY: E28.39 - Other primary ovarian failure COMPARISON: 07/07/2017 Lumbar spine BMD (L1-L4): 1.130 g/cm2 T score: -0.4 Z score: -1.2 Total hip BMD: Left: 1.091 g/cm2. T score: 0.7 Z score: 0.3 Right: 1.051 g/cm2. T score: 0.3 Z score: 0.0 10 year probability of a major osteoporotic fracture is 3.1%. Compared to the prior study from 07/07/2017. Lumbar spine bone mineral density has decreased by 1.2%. Bilateral hips bone mineral density has decreased by 1.6%. XR/XR DEXA axial skeleton* [id number] IMPRESSION: NORMAL BONE MINERAL DENSITY based upon the WHO classification for females. No significant change in bone mineral density since the prior study.
== END 2022-10-22 14:36 | disposition home or self-care (01) ==
LOC: RAD 14:39
PROVIDERS: PCP Family Medicine; Visit Provider Nurse Practitioner Women's Health
DX: E28.39 Other primary ovarian failure (principal)
CPT/HCPCS: 77080; 84315; 84443; 85025; 87624

== ENCOUNTER 2022-12-08 12:28 | Outpatient (CLI) | payer OTHER, SELFPAY ==
--- NOTE | 2022-12-08 12:39 | CT_ITS ---
WS: [email or web address] CT chest wo con [id number] HISTORY: LUNG NODULE TECHNIQUE: Axial imaging performed through the thorax. Coronal and sagittal reformats are submitted. All CT scans at [facility] use at least one of these dose optimization techniques: automated exposure control; mA and/or kV adjustment per patient size (includes targeted exams where dose is mat ched to clinical indication); or iterative reconstruction. CONTRAST: None DLP: 312.35 mGy.cm COMPARISON: 07/04/2020 and 06/10/2022 Lungs and central airway: Well aerated lungs. There are several nodules and a few areas of groundglas s attenuation. Some these nodules were present on 07/04/2020 CT. The nodule of concern on the CT of is unchanged measuring 5 mm. Probably present also 2020 but not as well-visualized due to vol ume averaging. Additional 4 mm groundglass nodule posterior LEFT lower lobe. Subpleural nodule 3 mm R IGHT lower lobe. 4 mm nodule along the superior LEFT fissure. Very subtle groundglass attenuation wilfred ng the inferior LEFT major fissure. Pleura: Normal. No pleural effusion. Heart and pericardium: Normal size heart with no pericardial effusion. Mediastinum and ann marie: No mediastinum or hilar adenopathy. Vessels: Aberrant RIGHT subclavian artery passes posterior to the esophagus. Normal aorta. Chest wall and lower neck: No soft tissue masses. Upper abdomen: Mild hepatic steatosis. No adrenal mass. Osseous structures: No destructive process. CT/CT chest wo con [id number] IMPRESSION: 1. Multiple bilateral pulmonary nodules with a few groundglass nodules. Some o f these nodules remain stable since 06/10/2022 and 07/04/2020. Groundglass areas are new. Favor these are all postinflammatory. Recommend additional 6-[address] follow-up to document long-term stability. 2. No adenopathy. 3. Aberrant RIGHT subclavian artery.
== END 2022-12-08 12:29 | disposition home or self-care (01) ==
PROVIDERS: PCP Family Medicine; Visit Provider Family Medicine
DX: R91.8 Other nonspecific abnormal finding of lung field (principal)
CPT/HCPCS: 71250

== ENCOUNTER 2023-11-01 08:19 | Outpatient (CLI) | payer OTHER, SELFPAY ==
--- NOTE | 2023-11-01 08:27 | MM_ITS ---
WS: [email or web address] BILATERAL SCREENING DIGITAL TOMOSYNTHESIS MAMMOGRAM WITH CAD HISTORY: SCREENING COMPARISON: 09/01/2022, 06/06/2021 Bilateral CC and MLO views with tomosynthesis and synthetic mammography submitted. Computer aided det ection analyzed. Breast composition: There are scattered areas of fibroglandular density. No suspicious masses, microc alcifications or architectural distortion. MM/[place] [id number] IMPRESSION: BI-RADS: 1-Negative FOLLOW UP: 1 Year Follow-up
== END 2023-11-01 08:20 | disposition home or self-care (01) ==
LOC: RAD 08:19
PROVIDERS: PCP Family Medicine; Visit Provider Family Medicine
DX: Z12.31 Encounter for screening mammogram for malignant neoplasm of breast (principal)
CPT/HCPCS: 77063; 77067

== ENCOUNTER → 2023-12-15 15:52 | Outpatient (BNVA) | payer OTHER, SELFPAY | PROVIDERS: PCP Family Medicine; Visit Provider Nurse Practitioner Women's Health | DX: Z01.419 Encounter for gynecological examination (general) (routine) without abnormal findings (principal) | CPT/HCPCS: 87624 ==

== ENCOUNTER 2024-01-13 07:44 | Outpatient (CLI) | payer OTHER, SELFPAY ==
--- NOTE | 2024-01-13 07:55 | CT_ITS ---
WS: [email or web address] CT chest wo con [id number] HISTORY: MULTIPLE LUNG NODULES TECHNIQUE: Axial imaging performed through the thorax. Coronal and sagittal reformats are submitted. All CT scans at [facility] use at least one of these dose optimization techniques: automated exposure control; mA and/or kV adjustment per patient size (includes targeted exams where dose is mat ched to clinical indication); or iterative reconstruction. CONTRAST: None DLP: 449.39 mGy.cm COMPARISON: 12/08/2022, 07/04/2020 Lungs and central airway: Lungs are very slightly hyperexpanded. Reidentified are the noncalcified, s ubcentimeter pulmonary nodules. No new nodules. None of these nodules are enlarging. The largest nodu les measure around 5 mm. There is also been slight improvement in the areas of groundglass attenuatio n. No consolidations. Pleura: Normal. No pleural effusion. Heart and pericardium: Normal size heart with no pericardial effusion. Mediastinum and ann marie: No mediastinum or hilar adenopathy. Vessels: Aberrant RIGHT subclavian artery passes posterior to the esophagus. No change in the configu ration of the arch since 07/04/2020. Chest wall and lower neck: No soft tissue masses. Upper abdomen: Small hiatal hernia. Mild hepatic steatosis. No adrenal mass. Osseous structures: No destructive process. CT/CT chest wo con [id number] IMPRESSION: 1. Long-term stability bilateral, subcentimeter pulmonary nodules. No new nodu le or enlarging nodule. 2. Interval slight improvement in the areas of groundglass attenuation with no progression. Some of these areas are related to scarring and atelectasis. No a dditional follow-up necessary. 3. Aberrant RIGHT subclavian artery.
== END 2024-01-13 07:45 | disposition home or self-care (01) ==
LOC: RAD 07:51
PROVIDERS: PCP Family Medicine; Visit Provider Family Medicine
DX: R91.8 Other nonspecific abnormal finding of lung field (principal); K44.9 Diaphragmatic hernia without obstruction or gangrene
CPT/HCPCS: 71250

== ENCOUNTER → 2024-12-19 11:20 | Outpatient (BNVA) | payer OTHER, SELFPAY | PROVIDERS: PCP Family Medicine; Visit Provider Nurse Practitioner Women's Health | DX: E28.39 Other primary ovarian failure (principal) | CPT/HCPCS: 82306 ==

== ENCOUNTER → 2025-01-01 10:31 | Outpatient (BNVA) | payer OTHER, SELFPAY | PROVIDERS: PCP Family Medicine; Visit Provider Nurse Practitioner Women's Health | DX: R10.9 Unspecified abdominal pain (principal) | CPT/HCPCS: 76830 ==

== ENCOUNTER 2025-01-03 13:04 | Outpatient (CLI) | payer OTHER, SELFPAY ==
--- NOTE | 2025-01-03 13:20 | MM_ITS ---
WS: [email or web address] BILATERAL 3D TOMOSYNTHESIS DIGITAL SCREENING MAMMOGRAPHY WITH CAD CLINICAL INFORMATION: Z12.31 - Encounter for screening mammogram for malignant ... HISTORY: Screening mammogram. No current complaints. COMPARISON: 2023 TECHNIQUE: Bilateral CC and MLO views. FINDINGS: Scattered fibroglandular densities bilaterally. No suspicious focal mass, asymmetry, calcifications, or architectural distortion. No evidence of malignancy. MM/MM scr tomosynthesis [id number] IMPRESSION: DENSITY: There are scattered areas of fibroglandular density. BI-RADS: 1 - Negative. FOLLOW UP: 1 Year Follow-up Recommend return to annual screening mammography.
--- NOTE | 2025-01-03 14:00 | XR_ITS ---
WS: [email or web address] SCREENING DEXA SCAN [employer] CLINICAL INFORMATION: E28.39 - Other primary ovarian failure COMPARISON: 2022 FINDINGS: The L1-L4 bone mineral density measures 1.078 g/cm2. This corresponds to a T score score of -0.8 and Z score of -1.4. Left femoral neck bone mineral density measures 1.083 g/cm2. This corresponds to a T score of 0.6 and Z score of 0.4. Right femoral neck bone mineral density measures 1.063 g/cm2. This corresponds to a T score 0.4of and Z score of 0.2. Mean femoral neck bone mineral density measures 1.073 g/cm2. This corresponds to a T score of 0.5 and Z score of 0.3. XR/XR DEXA axial skeleton* [id number] IMPRESSION: Normal bone mineralization. Patient's FRAX calculated 10 year probability for major osteoporotic fracture i s 3.7% and osteoporotic hip fracture is 0.1%. Bone density lumbar spine decreased -4.6% Bone density femoral necks increased 0.2%
== END 2025-01-03 13:05 | disposition home or self-care (01) ==
LOC: RAD 13:05
PROVIDERS: PCP Family Medicine; Visit Provider Nurse Practitioner Women's Health
DX: Z12.31 Encounter for screening mammogram for malignant neoplasm of breast (principal); Z13.820 Encounter for screening for osteoporosis; E28.39 Other primary ovarian failure; Z78.0 Asymptomatic menopausal state
CPT/HCPCS: 77063; 77067; 77080

== ENCOUNTER 2025-01-25 07:12 | Day surgery (SDC) | payer OTHER, SELFPAY ==
[2025-01-25 07:27] VITALS: BP 137/91; PULSE 89; RESP 18; TEMP 36.4; O2SAT 97; BMI 32.8
--- NOTE | 2025-01-25 07:57 | W.PM.OPSUD ---
Surgery/Procedure H&P Update DATE OF PROCEDURE: January 25, 2025 DATE H&P PERFORMED: 01/03/25 H&P UPDATE INFORMATION: I have reviewed H&P completed within last 30 days, I have examined patient prior to procedure, No changes to prior documentation, Changes to prior documentation as noted here and Risks and benefits of the procedure reviewed PLANNED PROCEDURE: Operation Date: 01/25/25 08:35 Proposed Procedures p Colonoscopy 04589 G0105 Z12.11(Not Applicable) - Chema Brar MD
--- NOTE | 2025-01-25 08:06 | P.ANESASSM_ITS ---
Pre-Anesthetic Assessment Height/Weight: Height 1.7 m Weight 95.254 kg Temp Pulse Resp BP Pulse Ox O2 Del Method 97.6 F 89 18 137/91 97 Room Air 01/25/25 07:27 01/25/25 07:27 01/25/25 07:27 01/25/25 07:27 01/25/25 07:27 01/25/25 07:27 Preop Diagnosis: screen Operation Date: 01/25/25 08:35 Proposed Procedures p Colonoscopy 08898 G0105 Z12.11(Not Applicable) - Chema Brar MD Last intake: Intake Last Liquid Date 01/24/25 Last Liquid Time 23:55 Last Solid Date 01/23/25 Last Solid Time 21:30 Social No alcohol and No tobacco Exam alert, oriented x 3, clear to auscultation bilaterally and regular rate & rhythm Airway Submandibular: within normal limits Cervical ROM: within normal limits Mallampati: Class I Comments: Comments: intact History/ROS No significant history except as noted Pulmonary None reported CV/HEM None reported None reported Hepatic None reported GI None reported Metabolic Morbid Obesity [facility] None reported Neuropsych None reported Anesthetic Plan ASA status: 2 Anesthesia: MAC Risk of > 500 ml blood loss (7ml/kg in children): No Medications/Allergies Home Medications ?Medication ?Instructions ?Recorded ?Confirmed ?Last Taken ?Type No Known Home Medications 10/01/2212/27 Unknown History Allergies Allergy/AdvReac Type Severity Reaction Status Date / Time Sulfa (Sulfonamide Allergy ALGY-Rash Verified 01/03/25 11:37 Antibiotics) Current Medications Generic Name Dose Route Start Last Admin Trade Name Freq PRN Reason Stop Dose Admin Sodium Chloride 1,000 mls @ 15 mls/hr 01/25/25 07:20 01/25/25 07:33 Sodium Chloride 0.9% IV 01/26/25 07:19 15 mls/hr .Q24H PRN Administration COLONOSCOPY FLUIDS PFSH Anesthesia Medical History Premature ovarian failure No pertinent past medical history neghx:htn,dm,thyroid,dvt/pe PCP: Dr. Luther Surgical History History of section (~1996) Performed by Dr. Chavira at [facility] in [place], [place]. History of laparoscopic appendectomy 06/12/22 Family History Family/Other Breast cancer aunt/paternal Grandmother Diabetes maternal Mother Family history of thyroid problem Denies family history of Colon cancer Ovarian cancer Heart disease Hyperlipidemia Hypertension Uterine cancer Stroke Social History Smoking and tobacco/nicotine status: never used tobacco/nicotine
[2025-01-25 09:03] VITALS: BP 132/71; PULSE 73; RESP 10; TEMP 36.4; O2SAT 96
[2025-01-25 09:30] VITALS: BP 135/92; PULSE 71; RESP 16; O2SAT 97
== END 2025-01-25 09:35 | disposition home or self-care (01) ==
PROVIDERS: PCP Family Medicine; Visit Provider Surgery
PROC: 0DJD8ZZ Inspection of Lower Intestinal Tract, Via Natural or Artificial Opening Endoscopic (ICD-10-PCS; CPT 45378; principal; 2025-01-25 08:35)
DX: Z12.11 Encounter for screening for malignant neoplasm of colon (principal); D12.4 Benign neoplasm of descending colon
CPT/HCPCS: 45380; 88305; J2704; J7030